=== PATIENT | male | born 1990 | race Caucasian/White ===

== ENCOUNTER 2023-03-05 16:33 | Emergency (ER) | payer SELFPAY ==
[~2023-03-05] VITALS: Ht 175.3 cm; Wt 79.0 kg
[2023-03-05 17:15] VITALS: TEMP 98.9
[2023-03-05 17:26] LABS: COVID AG,FIA SOURCE NASOPHARYNGEAL
[2023-03-05] MEDS ORDERED: HALOPERIDOL 5 MG TABLET PO ONE (20:30)
[2023-03-05 21:23] VITALS: BP 132/81; PULSE 88; RESP 20
== END 2023-03-05 21:27 | disposition home or self-care (01) ==
LOC: EMS 16:34
DX: F41.9 Anxiety disorder, unspecified (principal); R45.851 Suicidal ideations; F32.A Depression, unspecified
CPT/HCPCS: 99285; Z7502; Z7610

== ENCOUNTER 2023-04-04 14:10 | Emergency (ER) | payer OTHER ==
[~2023-04-04] VITALS: Ht 182.9 cm; Wt 83.0 kg
[2023-04-04 14:17] VITALS: TEMP 98.4
[2023-04-04 15:05] LABS: BASOPHILS % (AUTO) 0.7 % (0.0-2.0); EOSINOPHILS % (AUTO) 1.3 % (1.0-6.0); HEMATOCRIT 46.3 % (41-53); HEMOGLOBIN 15.7 g/dL (13.5-17.5); LYMPHOCYTES # (AUTO) 3.3 K/uL (1.0-4.8); LYMPHOCYTES % (AUTO) 48.2 % (22.0-44.0); MEAN CORPUSCULAR HEMOGLOBIN 30.6 pg (26.0-34.0); MEAN CORPUSCULAR VOLUME 90 fL (80-100); MONOCYTES # (AUTO) 0.6 K/uL (0.1-1.0); MONOCYTES % (AUTO) 8.9 % (2.0-9.0); NEUTROPHILS # (AUTO) 2.8 K/uL (1.8-7.7); NEUTROPHILS % (AUTO) 40.9 % (40.0-70.0); PLATELET COUNT (AUTO) 338 K/uL (150-450); RED BLOOD CELL COUNT(AUTO) 5.14 MIL/uL (4.50-5.90); WHITE BLOOD COUNT (AUTO) 6.9 K/uL (4.5-11.0)
[2023-04-04 15:11] LABS: ANION GAP 11 mmol/L (8-16); CALCIUM, TOTAL 8.4 mg/dL (8.8-10.5); CARBON DIOXIDE 28 mmol/L (22-29); CHLORIDE 102 mmol/L (98-107); CREATININE 0.73 mg/dL (0.60-1.30); GLOMERULAR FILTR. RATE CALC > 60 mL/min (>60); GLUCOSE,RANDOM 92 mg/dL (70-110); SODIUM SERUM 141 mmol/L (136-145); UREA NITROGEN, BLOOD 11 mg/dL (7-18)
[2023-04-04 15:12] LABS: ALCOHOL, BLOOD (SERUM) 271 mg/dL (0-10)
[2023-04-04 15:17] LABS: ALANINE AMINOTRANSFERASE 46 U/L (12-78); ALBUMIN 3.7 g/dL (3.4-5.0); ALKALINE PHOSPHATASE 94 U/L (46-116); ASPARTATE AMINOTRANSFERASE 40 U/L (15-37); BILIRUBIN,TOTAL 0.4 mg/dL (0.1-1.0); LIPASE 28 U/L (16-77); TOTAL PROTEIN, SERUM 7.6 g/dL (6.4-8.2)
[2023-04-04 15:33] LABS: COVID AG,FIA SOURCE NASAL SWAB
[2023-04-04 15:39] LABS: PH,URINE DRUG SCREEN 6.5 (5.0-8.0)
[2023-04-04 15:46] LABS: AMPHET/METH SCREEN,URINE NEGATIVE (NEGATIVE); BARBITURATE SCREEN, URINE NEGATIVE (NEGATIVE); BENZODIAZEPINES SCREEN,URINE NEGATIVE (NEGATIVE); CANNABINOID SCREEN,URINE NEGATIVE (NEGATIVE); COCAINE SCREEN,URINE NEGATIVE (NEGATIVE); METHADONE SCREEN, URINE NEGATIVE (NEGATIVE); OPIATE SCREEN,URINE NEGATIVE (NEGATIVE); PHENCYCLIDINE SCREEN,URINE NEGATIVE (NEGATIVE)
[2023-04-04 15:47] LABS: ALCOHOL, URINE DRUG SCREEN POSITIVE (NEGATIVE)
[2023-04-04 15:54] LABS: SARS-COV2 (COVID) ANTIGEN,FIA Negative (Negative)
[2023-04-04 17:15] VITALS: BP 130/85; PULSE 75; RESP 14
== END 2023-04-04 17:36 | disposition home or self-care (01) ==
LOC: EMS 14:14
DX: K70.30 Alcoholic cirrhosis of liver without ascites (principal); F10.229 Alcohol dependence with intoxication, unspecified; F41.9 Anxiety disorder, unspecified; F32.A Depression, unspecified; Z79.899 Other long term (current) drug therapy; Z20.822 Contact with and (suspected) exposure to COVID-19; Y90.9 Presence of alcohol in blood, level not specified
CPT/HCPCS: 99283; 87426; 80053; 83690; 85025; 36415; 80307; G0480